=== PATIENT | female | born 1975 | race Two or more races ===

== ENCOUNTER 2021-01-11 09:19 | Outpatient (CLI) | payer OTHER | END 2021-01-11 09:31 | disposition home or self-care (01) | LOC: LAB 09:19 | PROVIDERS: ATTEND Internal Medicine Hematology & Oncology | DX: D50.8 Other iron deficiency anemias (principal); I10 Essential (primary) hypertension; R74.02 Elevation of levels of lactic acid dehydrogenase [LDH]; K76.89 Other specified diseases of liver; D51.1 Vitamin B12 deficiency anemia due to selective vitamin B12 malabsorption with proteinuria; D51.0 Vitamin B12 deficiency anemia due to intrinsic factor deficiency; E03.8 Other specified hypothyroidism; E06.3 Autoimmune thyroiditis; D68.61 Antiphospholipid syndrome; E72.12 Methylenetetrahydrofolate reductase deficiency; I82.621 Acute embolism and thrombosis of deep veins of right upper extremity; M53.1 Cervicobrachial syndrome ==

== ENCOUNTER → 2021-04-19 09:23 | Outpatient (CLI) | payer OTHER | END | disposition home or self-care (01) | LOC: LAB 09:23 | PROVIDERS: ATTEND Internal Medicine Hematology & Oncology | DX: D50.8 Other iron deficiency anemias (principal); R79.9 Abnormal finding of blood chemistry, unspecified; I10 Essential (primary) hypertension; R74.02 Elevation of levels of lactic acid dehydrogenase [LDH]; K76.89 Other specified diseases of liver; D51.8 Other vitamin B12 deficiency anemias; D68.59 Other primary thrombophilia; D68.61 Antiphospholipid syndrome; E72.11 Homocystinuria ==

== ENCOUNTER 2021-10-05 13:38 | Emergency (ER) | payer OTHER ==
[~2021-10-05] VITALS: Ht 165.1 cm; Wt 72.6 kg
[2021-10-05] MEDS ORDERED: INTEGRA CAPSUL1 EACH PO (13:56)
[2021-10-05] MEDS ORDERED: VITREXYL CAP1000 MCG PO (13:56)
[2021-10-05] MEDS ORDERED: SARELTO (13:57)
== END 2021-10-05 18:09 | disposition home or self-care (01) ==
LOC: ER 13:38
DX: R10.2 Pelvic and perineal pain (principal); N94.6 Dysmenorrhea, unspecified

== ENCOUNTER 2021-11-01 09:27 | Outpatient (CLI) | payer OTHER ==
[~2021-11-01 09:27] MED LIST: INTEGRA CAPSUL1 EACH PO; SARELTO; VITREXYL CAP1000 MCG PO
== END 2021-11-01 09:28 | disposition home or self-care (01) ==
LOC: LAB 09:27
PROVIDERS: ATTEND Internal Medicine Hematology & Oncology
DX: M53.1 Cervicobrachial syndrome (principal); I82.621 Acute embolism and thrombosis of deep veins of right upper extremity; E72.12 Methylenetetrahydrofolate reductase deficiency; D68.61 Antiphospholipid syndrome

== ENCOUNTER 2021-11-22 08:21 | Outpatient (CLI) | payer OTHER | END 2021-11-22 08:30 | disposition home or self-care (01) | LOC: LAB 08:21 | PROVIDERS: ATTEND Obstetrics & Gynecology Obstetrics | DX: D64.3 Other sideroblastic anemias (principal); N39.0 Urinary tract infection, site not specified; E03.9 Hypothyroidism, unspecified; I10 Essential (primary) hypertension; J45.40 Moderate persistent asthma, uncomplicated ==

== ENCOUNTER 2021-12-20 08:35 | Outpatient (CLI) | payer OTHER | END 2021-12-20 08:47 | disposition home or self-care (01) | LOC: MAMO-SONO 08:35 | PROVIDERS: ATTEND Obstetrics & Gynecology Obstetrics | DX: N60.01 Solitary cyst of right breast (principal); N60.02 Solitary cyst of left breast; R10.2 Pelvic and perineal pain; D25.1 Intramural leiomyoma of uterus ==

== ENCOUNTER 2023-05-29 11:21 | Outpatient (CLI) | payer OTHER | END 2023-05-29 11:30 | disposition home or self-care (01) | LOC: MAMO-SONO 11:21 | PROVIDERS: ATTEND Internal Medicine Hematology & Oncology | DX: Z12.31 Encounter for screening mammogram for malignant neoplasm of breast (principal); N63.0 Unspecified lump in unspecified breast; N64.4 Mastodynia ==